=== PATIENT | male | born 1930 | race Caucasian/White ===

== ENCOUNTER 2016-12-02 20:10 | Emergency (ER) | payer OTHER ==
--- NOTE | ~2016-12-02 | CT71 ---
[facility] A Service of [facility] RADIOLOGY TEXT RESULTS PATIENT: NESS JENSEN LOCATION: SED : 30 UNIT #: [id number] AGE: [address]: Hima Chaidez MD SEX: M ORDER DR: [id number] [place] [id number] E MR#: [id number] Acc #: [id number] NAME: NESS JENSEN. : 1930 SEX: M STUDY DATE/TIME: 12/02/2016 20:10 UNIT: SED ROOM: STUDY DESCRIPTION: CT Head Wo Contrast Attending Physician: Hima Chaidez M.D. Ordering Physician: Hima Chaidez M.D. Primary Care Physician: Magen Thompson M.D. MEDICAL IMAGING REPORT This report is preliminary unless electronic signature is present. EXAM CT of the head without contrast. DATE OF EXAM 12/02/2016 INDICATION Pain after a fall tonight. Patient hit his head on a gas meter. He reports a laceration as well. TECHNIQUE Axial CT images were obtained from the vertex of the skull through the skull base. No intravenous contrast is administered. NOTE: This CT exam was performed with one or more of the following radiation dose reduction techniques: automatic exposure control, adjustment of mA and/or kV according to patient size, and iterative reconstruction. FINDINGS No acute intracranial hemorrhage is identified. 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 There is some basal ganglia calcifications noted bilaterally. There is no midline shift or mass effect. There are no focal soft tissue abnormalities. The visualized paranasal sinuses and mastoid air cells appear clear. No calvarial fracture is seen. IMPRESSION No acute intracranial process is identified. Specifically, there is no evidence of acute hemorrhage, mass lesion or acute infarct. The patient does have some mild atrophy which is in keeping with the age of 86. [facility] A Service [facility] RADIOLOGY TEXT RESULTS PATIENT: NESS JENSEN LOCATION: SED : 30 UNIT #: [id number] AGE: [address]: Hima Chaidez MD SEX: M ORDER DR: Dictated by... Neisha Juarez M.D. THIS IS AN ELECTRONICALLY VERIFIED REPORT Neisha Juarez M.D. at 12/05/2016 1:18 PM AFF/jfrank TD: 12/03/2016 00:43 JOB #: [id number] MEDICAL IMAGING REPORT
[~2016-12-02 20:10] MED LIST: LOTREL PO; ST. JOSEPH ASPI81 M3 PO
== END 2016-12-02 21:57 | disposition home or self-care (01) ==
LOC: SED 20:10
DX: S01.01XA Laceration without foreign body of scalp, initial encounter (principal); I10 Essential (primary) hypertension; Z79.82 Long term (current) use of aspirin; Z79.899 Other long term (current) drug therapy; Z23 Encounter for immunization; W01.0XXA Fall on same level from slipping, tripping and stumbling without subsequent striking against object, initial encounter; Y92.098 Other place in other non-institutional residence as the place of occurrence of the external cause
CPT/HCPCS: 12001; 70450; 90471; 90715; 99284